=== PATIENT | male | born 1975 ===

== ENCOUNTER 2016-11-09 08:28 | Emergency (ER) | payer MEDICARE, OTHER ==
[2016-11-09 08:43] VITALS: BP 120/75; PULSE 62; RESP 20; TEMP 97.9
[2016-11-09] MEDS ORDERED: DIPH,PERTUS(ACELL)TETVAC-LF 0.5 ML VIAL IM ONE (09:38)
[2016-11-09] MEDS ORDERED: GELATIN SPONGE,ABSORB (SMALL) 1 EACH SPONGE TOPICAL STA (09:44)
--- NOTE | 2016-11-09 09:48 | ED ---
Wound/Laceration HPI - General Chief Complaint: Wound/Laceration Stated Complaint: Left ring finger laceration Time Seen by Provider: 11/09/16 08:59 Source: patient, RN notes reviewed Mode of arrival: ambulatory Limitations: no limitations - History of Present Illness Initial Comments: Patient is a 40-year-old male presents to the emergency room for evaluation of finger laceration. Patient states last night he accidentally cut his left fourth digit under the nail bed with a knife. Patient states the area has not stopped bleeding since the incident. Patient states he is not sure when his last tetanus vaccine was. Patient states he's applied multiple Band-Aids throughout the night. Patient states the area is slightly tender on palpation. Patient denies any swelling. Patient denies any trouble moving his finger. Patient denies taking any blood thinners. - Related Data Home Medications Medication Instructions Recorded Confirmed L.acidoph,Paracasei, B.lactis 1 cap PO DAILY 03/16/16 11/09/16 [Probiotic] Multivitamins, Thera [Multivitamin 1 tab PO DAILY 11/09/16 11/09/16 (formulary)] lamoTRIgine [LaMICtal Xr] 50 mg PO DAILY 11/09/16 11/09/16 Allergies Allergy/AdvReac Type Severity Reaction Status Date / Time No Known Allergies Allergy Verified 11/09/16 09:00 Review of Systems ROS Statement: Those systems with pertinent positive or pertinent negative responses have been documented in the HPI. ROS Other: All systems not noted in ROS Statement are negative. Past Medical History Additional Past Medical History / Comment(s): LYMES DISEASE History of Any Multi-Drug Resistant Organisms: None Reported Past Surgical History: No Surgical Hx Reported Past Psychological History: Anxiety, Depression Smoking Status: Current every day smoker Past Alcohol Use History: None Reported Past Drug Use History: Marijuana General Exam - General Exam Comments Initial Comments: Sitting in exam room, no acute distress. Limitations: no limitations General appearance: alert, in no apparent distress Head exam: Present: atraumatic, normocephalic, normal inspection Eye exam: Present: normal appearance Neck exam: Present: normal inspection Respiratory exam: Absent: respiratory distress Left Hand Wrist exam: Present: full ROM, other (Bleeding from nail bed of the fourth finger. No lacerations noted.). Absent: nail avulsion, subungual hematoma Neuro motor exam: Present: fingers 2-5 abduction intact Vascular: Present: normal capillary refill (Capillary refill less than 2 seconds ), radial pulse (2+), ulnar pulse (2+) Course Vital Signs 11/09/16 08:41 Temperature 97.9 F Pulse Rate 62 Respiratory 20 Rate Blood Pressure 120/75 O2 Sat by Pulse 99 Oximetry Medical Decision Making - Medical Decision Making Patient is a 40-year-old male presents to the emergency room for evaluation of left fourth finger bleeding. Gelfoam was placed over the nail bed. Patient was updated on his tetanus vaccine. Return parameters discussed. Case discussed with Dr. Queen. Disposition Clinical Impression: Finger laceration Disposition: HOME SELF-CARE Condition: Good Instructions: Laceration (ED) Additional Instructions: Gelfoam will fall off on its own in 24-48 hours. Keep wound area clean and dry. Please follow up with primary care provider in 1-2 days. If any new symptom arises or symptoms worsen, return to ER as soon as possible. Referrals: Mary Lopez MD [Primary Care Provider] - 1-2 days Time of Disposition: 10:30
== END 2016-11-09 10:52 | disposition home or self-care (01) ==
LOC: EC 08:28
DX: S61.215A Laceration without foreign body of left ring finger without damage to nail, initial encounter (principal); F32.9 Major depressive disorder, single episode, unspecified; F17.200 Nicotine dependence, unspecified, uncomplicated; Z23 Encounter for immunization; Z79.899 Other long term (current) drug therapy; W26.0XXA Contact with knife, initial encounter
CPT/HCPCS: 90471; 90715; 99282

== ENCOUNTER 2017-06-04 20:05 | Emergency (ER) | payer MEDICARE, OTHER ==
--- NOTE | 2017-06-04 21:05 | ED ---
Psych HPI - General Chief Complaint: Psychiatric Symptoms Stated Complaint: Mental Health Time Seen by Provider: 06/04/17 20:47 Source: patient, RN notes reviewed Mode of arrival: ambulatory Limitations: no limitations - History of Present Illness Initial Comments: 41-year-old male presents emergency Department with [facility] for psychiatric evaluation. Patient was picked up on court order petition. Patient states that this is happened multiple times in which his filled out petition. Patient states that he had an argument on Wednesday. She filled it out. He states that he is at home was given watch a movie, [employer] games any his pizza when he was picked up. He is not suicidal or homicidal. Patient states that he used to use marijuana oil but states is not using illicit drugs or alcohol at this time. - Related Data Home Medications Medication Instructions Recorded Confirmed lamoTRIgine [LaMICtal Xr] 50 mg PO DAILY 11/09/16 06/04/17 Allergies Allergy/AdvReac Type Severity Reaction Status Date / Time No Known Allergies Allergy Verified 06/04/17 20:59 Review of Systems ROS Statement: Those systems with pertinent positive or pertinent negative responses have been documented in the HPI. ROS Other: All systems not noted in ROS Statement are negative. Past Medical History Additional Past Medical History / Comment(s): LYMES DISEASE History of Any Multi-Drug Resistant Organisms: None Reported Past Surgical History: No Surgical Hx Reported Past Psychological History: Anxiety, Depression Smoking Status: Former smoker Past Alcohol Use History: None Reported Past Drug Use History: None Reported, Marijuana General Exam General appearance: alert, in no apparent distress Head exam: Present: atraumatic, normocephalic, normal inspection Eye exam: Present: normal appearance, PERRL, EOMI. Absent: scleral icterus, conjunctival injection, periorbital swelling ENT exam: Present: normal exam, normal oropharynx, mucous membranes moist Neck exam: Present: normal inspection, full ROM. Absent: tenderness, meningismus, lymphadenopathy Respiratory exam: Present: normal lung sounds bilaterally. Absent: respiratory distress, wheezes, rales, rhonchi, stridor Cardiovascular Exam: Present: regular rate, normal rhythm, normal heart sounds. 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 Patient is not suicidal or homicidal. Patient was evaluated by EPS in case discussed with on-call psychiatrist. Patient is not homicidal himself at this time. He is recommended to move any weapons in the house. Patient we discharged with follow-up outpatient. - Lab Data Lab Results 06/04/17 Range/Units 21:21 Urine Opiates Screen Not Detected (NotDetected) Ur Oxycodone Screen Not Detected (NotDetected) Urine Methadone Screen Not Detected (NotDetected) Ur Propoxyphene Screen Not Detected (NotDetected) Ur Barbiturates Screen Not Detected (NotDetected) U Tricyclic Antidepress Not Detected (NotDetected) Ur Phencyclidine Scrn Not Detected (NotDetected) Ur Amphetamines Screen Not Detected (NotDetected) U Methamphetamines Scrn Not Detected (NotDetected) U Benzodiazepines Scrn Not Detected (NotDetected) Urine Cocaine Screen Not Detected (NotDetected) U Marijuana (THC) Screen Detected H (NotDetected) Disposition Clinical Impression: Depression Disposition: HOME SELF-CARE Condition: Stable Instructions: Depression (ED) Additional Instructions: Please return to the Emergency Department if symptoms worsen or any other concerns. Referrals: Mary Lopez MD [Primary Care Provider] - 1-2 days Time of Disposition: 23:39
[2017-06-04 23:01] LABS: Amphetamine Screen,Urine Not Detected (NotDetected); Barbiturate Screen,Urine Not Detected (NotDetected); Benzodiazepines Screen,Urine Not Detected (NotDetected); Cocaine Screen,Urine Not Detected (NotDetected); Methadone Screen, Urine Not Detected (NotDetected); Opiate Screen,Urine Not Detected (NotDetected); Oxycodone Screen, Urine Not Detected (NotDetected); Phencyclidine Screen,Urine Not Detected (NotDetected); Tricyclic Antidepressant,Urine Not Detected (NotDetected); Urn Cannabinoid Scrn Detected (NotDetected)
[2017-06-04 23:58] VITALS: BP 151/90; PULSE 67; RESP 18; TEMP 98
== END 2017-06-04 23:57 | disposition home or self-care (01) ==
LOC: EC 20:05
DX: F32.9 Major depressive disorder, single episode, unspecified (principal); F12.90 Cannabis use, unspecified, uncomplicated; Z87.891 Personal history of nicotine dependence; Z79.899 Other long term (current) drug therapy
CPT/HCPCS: 80306; 82075; 99284

== ENCOUNTER → 2022-03-16 | Outpatient (CLI) | payer MEDICARE ==
--- NOTE | 2022-03-16 09:30 | US ---
EXAMINATION TYPE: US kidneys/renal and bladder DATE OF EXAM: 03/16/2022 COMPARISON: NONE CLINICAL HISTORY: N30.01 TRIGONITIS WITH HEMATURIA. EXAM MEASUREMENTS: Right Kidney: 10.3 x 5.0 x 5.6 cm Left Kidney: 11.0 x 6.1 x 5.2 cm Right Kidney: cyst measuring 1.0 x 1.0 x 1.2cm Left Kidney: lobular contour, prominent calyces Bladder: wnl Bilateral Jets seen: Yes There is no evidence for hydronephrosis at this point in time. No nephrolithiasis is seen. Incidenta l 1.0 cm thin-walled cyst in the right kidney upper to mid pole level. The urinary bladder is adequa tely distended. Bilateral ureteral jets are seen. IMPRESSION: Source of hematuria not identified. If symptoms persist after treatment of infection, fur ther investigation with CT urogram would be warranted.
== END | disposition home or self-care (01) ==
LOC: RADUSWWP 07:51
PROVIDERS: ATTEND Internal Medicine
DX: N30.31 Trigonitis with hematuria (principal)
CPT/HCPCS: 76770